=== PATIENT | female | born 1940 | race Caucasian/White ===

== ENCOUNTER 2017-03-18 11:16 | Outpatient (CLI) | payer MEDICARE, OTHER ==
[2015-09-08 23:54] VITALS: BP 154/63
--- NOTE | 2017-03-18 15:34 | Diagnostic Imaging Report ---
FLORENCIA CHAVEZ [facility] [address] [facility] [address] [address] Report Submission Date: Mar 18, 2017 3:29:38 PM CDT Patient Study Name: MAXI PERLA Date: Mar 18, 2017 11:55:46 AM CDT Modality Type: CR Gender: F Description: PELVIS : 44 Institution: [facility] Physician: FLORENCIA CHAVEZ 2 views right hip pain History: RT HIP, PAIN IN RT HIP FOR SEVERAL WEEKS Findings: No comparison studies Degenerative changes right hip. There is over coverage of the femoral head by the acetabulum No evidence of acute fracture or dislocation Impression: Over coverage of the femoral head by the acetabulum, possible Pincer type impingement Narrowing of the hip joint space No evidence of acute fracture or dislocation Electronically signed on Mar 18, 2017 3:29:38 PM CDT by: Jaye ROE
== END 2017-03-18 11:17 ==
LOC: RAD 11:16
PROVIDERS: ATTEND Family Medicine
DX: M25.551 Pain in right hip (principal)
CPT/HCPCS: 73502

== ENCOUNTER 2017-04-29 09:47 | Outpatient (CLI) | payer MEDICARE, OTHER ==
[2015-09-08 23:54] VITALS: BP 154/63
[2017-04-29 10:38] LABS: eGFR (African) 30; eGFR (Non-African) 24
== END 2017-04-29 09:50 ==
LOC: LAB 09:47
PROVIDERS: ATTEND Family Medicine
DX: E11.9 Type 2 diabetes mellitus without complications (principal); E03.9 Hypothyroidism, unspecified; M10.9 Gout, unspecified
CPT/HCPCS: 36415; 80053; 80061; 82043; 83036; 84443; 84550

== ENCOUNTER 2017-06-29 12:53 | Emergency (ER) | payer MEDICARE, OTHER ==
--- NOTE | 2017-06-29 13:14 | ED Physician Documentation ---
General Adult - HISTORIAN Historian: patient - HPI Chief Complaint: General Adult Onset: hours (this am) Timing: still present, better Severity: mild Further Comments: yes (Satish states that last several days she has been felling like her balance is off. Has not fallen. Has been having some mild dizziness.) - ROS CONST: no problems, fever. denies: chills CVS/RESP: denies: chest pain, shortness of breath - PAST HX Past History: hypertension, other (hypothyroidism, hyperuricemia) Other History: diabetes Type 2 Surgeries/Procedures: other (TKR left, partial colectomy, ORIF L ankle fx) Immunizations: referred to PCP Allergies/Adverse Reactions: Allergies Allergy/AdvReac Type Severity Reaction Status Date / Time TOBI Inhibitors Allergy Unknown Verified 06/29/17 13:16 contrast dye Allergy Uncoded 06/29/17 13:16 Home Medications: Ambulatory Orders Medication Instructions Recorded Aspirin [James] 81 mg PO DAILY 07/15/14 Vit C/E/Zn/Coppr/Lutein/Zeaxan 1 tab PO DAILY 09/08/15 [Preservision Areds 2 Softgel] - SOCIAL HX Smoking History: non-smoker Alcohol Use: none Drug Use: none - FAMILY HX Family History: No - VITAL SIGNS Vital Signs: Vital Signs Temp Pulse Resp BP Pulse Ox 154/63 09/08/15 23:52 - REVIEWED ASSESSMENTS Nursing Assessment Reviewed: Yes Vitals Reviewed: Yes General Adult Physical Exam - PHYSICAL EXAM GENERAL APPEARANCE: mild distress EENT: eye inspection normal, ENT inspection normal, pharynx normal, no signs of dehydration NECK: normal inspection, thyroid normal, supple RESPIRATORY: no resp distress, chest non-tender, breath sounds normal. No: wheezes, rales, rhonchi CVS: reg rate & rhythm, heart sounds normal, equal pulses, no murmur ABDOMEN: soft, no organomegaly, normal bowel sounds, no abdominal bruit, no distension, non-tender BACK: normal inspection, no CVA tenderness SKIN: warm/dry, normal color EXTREMITIES: non-tender NEURO: oriented X3, CN's nml as tested, mood/affect nml, cognition normal Discharge Clincal Impression: Dizziness, Chronic kidney disease (CKD) stage G3a/A2, moderately decreased glomerular filtration rate (GFR) between 45-59 mL/min/1.73 square meter and albuminuria creatinine ratio between 30-299 mg/g Hyperglycemia due to type 2 diabetes mellitus Qualifiers: Diabetes mellitus technician terminal and repeater insulin use: without correction use Qualified Code(s ): E11.65 - Type 2 diabetes mellitus with hyperglycemia Hypertension Qualifiers: Hypertension type: essential hypertension Qualified Code(s): I10 - Essential ( primary) hypertension Referrals: Rishi Robles MD [Primary Care Provider] - 2 Days Additional Instructions: Drink a lot of water/fluids. For the next several days until your dizziness improved to use a cane or walk touching odell, furniture or something to help you balance yourself. Return to see me on July 08, 2017 at 1:30 PM. Home Medications: Ambulatory Orders Aspirin [James] 81 mg PO DAILY 07/15/14 Vit C/E/Zn/Coppr/Lutein/Zeaxan [Preservision Areds 2 Softgel] 1 tab PO DAILY 10/13 Condition: Stable Disposition: 01 HOME, SELF-CARE Decision to Admit: NO Date of Decison to Admit: 06/29/17 Decision Time: 14:21
[2017-06-29 13:39] LABS: BASOPHILS % 0.9 (0.0-1.5); MEAN CORPUSCULAR HEMOGLOBIN 29.1 pg (28.0-34.0); MEAN CORPUSCULAR VOLUME 92.5 fl (80.0-100.0); MONOCYTES % 4.7 % (0.0-11.0); NEUTROPHILS # 2.8 # k/uL (1.4-7.7)
[2017-06-29 13:51] LABS: APPEARANCE,URINE Cloudy (CLEAR); COLOR,URINE Yellow (YELLOW); OCCULT BLOOD,URINE Negative (NEGATIVE); UROBILINOGEN URINE 0.2 Eu (0.2-1.0)
[2017-06-29 14:00] LABS: AMORPHOUS SEDIMENT,UR MODERATE (NEGATIVE)
[2017-06-29 14:54] VITALS: BP 169/64
== END 2017-06-29 14:53 | disposition home or self-care (01) ==
LOC: ED 12:53
DX: N18.9 Chronic kidney disease, unspecified (principal); E11.65 Type 2 diabetes mellitus with hyperglycemia; I10 Essential (primary) hypertension; R42 Dizziness and giddiness
CPT/HCPCS: 80053; 81002; 85025; 87086; 99283

== ENCOUNTER 2017-09-13 10:27 | Outpatient (CLI) | payer MEDICARE, OTHER | END 2017-09-13 10:30 | LOC: LAB 10:27 | PROVIDERS: ATTEND Family Medicine | DX: E11.9 Type 2 diabetes mellitus without complications (principal) | CPT/HCPCS: 36415; 83036 ==

== ENCOUNTER 2017-10-05 12:49 | Emergency (ER) | payer MEDICARE, OTHER ==
[2017-10-05 13:29] LABS: BASOPHILS % 0.6 (0.0-1.5); EOSINOPHILS % 2.4 % (0.0-6.8); MEAN CORPUSCULAR HEMOGLOBIN 29.6 pg (28.0-34.0); MEAN CORPUSCULAR VOLUME 88.8 fl (80.0-100.0); MONOCYTES % 4.2 % (0.0-11.0); NEUTROPHILS # 2.8 # k/uL (1.4-7.7)
--- NOTE | 2017-10-05 14:03 | ED Physician Documentation ---
General Adult - HISTORIAN Historian: patient - HPI Stated Complaint: fall Chief Complaint: Syncope Onset: hours (1) Timing: better Severity: mild Modifying Factors: after eating Context: none Quality: non Location: [facility] Further Comments: yes (she states she took her DM meds and she did not eat) Last known Well Date: 10/05/17 Last Known Well Time: 13:00 Last known Well Code/Unknown Code: Unknown - ROS CONST: no problems EYES/ENT: none CVS/RESP: none GI/: none MS/SKIN/LYMPH: none NEURO/PSYCH: fainting, dizziness, difficulty walking. denies: headache, numbness - PAST HX Past History: other (DM, hypertension , hypothryoidism, hyperlpidemia ) Other History: other Surgeries/Procedures: other (left ankle gallbladder ) Allergies/Adverse Reactions: Allergies Allergy/AdvReac Type Severity Reaction Status Date / Time TOBI Inhibitors Allergy Unknown Verified 10/05/17 13:00 contrast dye Allergy Uncoded 10/05/17 13:00 Home Medications: Ambulatory Orders Medication Instructions Recorded Aspirin [James] 81 mg PO DAILY 07/15/14 Vit C/E/Zn/Coppr/Lutein/Zeaxan 1 tab PO DAILY 09/08/15 [Preservision Areds 2 Softgel] - SOCIAL HX Smoking History: cigarettes Drug Use: none - FAMILY HX Family History: No - VITAL SIGNS Vital Signs: Vital Signs Temp Pulse Resp BP Pulse Ox 96.7 F L 81 16 175/93 99 10/05/17 12:49 10/05/17 12:49 10/05/17 12:49 10/05/17 12:49 10/05/17 12:49 - REVIEWED ASSESSMENTS Nursing Assessment Reviewed: Yes Vitals Reviewed: Yes ED Results Lab/Radiology - Lab Results Lab Results: Lab Results 10/05/17 10/05/17 13:25 13:25 WBC 4.20 K/ul K/ul (4.00-12.00) RBC 3.17 M/ul L M/ul (3.90-5.20) Hgb 9.4 g/dL L g/dL (12.0-16.0) Hct 28.2 % L % (34.5-46.5) MCV 88.8 fl fl (80.0-100.0) MCH 29.6 pg pg (28.0-34.0) MCHC 33.4 g/dL g/dL (30.0-36.0) RDW 13.7 % % (11.3-14.3) Plt Count 167 K/mm3 K/mm3 (130-400) Neut % (Auto) 65.6 % % (39.0-79.0) Lymph % (Auto) 25.6 % % (16.0-50.0) [place] % (Auto) 4.2 % % (0.0-11.0) Eos % (Auto) 2.4 % % (0.0-6.8) Baso % (Auto) 0.6 (0.0-1.5) Neut # (Auto) 2.8 # k/uL # k/uL (1.4-7.7) Lymph # (Auto) 1.1 # k/uL # k/uL (0.6-4.0) [place] # (Auto) 0.2 # k/uL # k/uL (0.0-0.9) Eos # (Auto) 0.1 # k/uL # k/uL (0.0-0.6) Baso # (Auto) 0.0 # k/uL # k/uL (0.0-0.5) Reactive Lymphs % 1.7 % % (0.0-5.0) Reactive Lymphs # 0.1 # k/uL # k/uL (0.0-0.8) Sodium 136 mmol/L L mmol/L (137-145) Potassium 5.1 mmol/L mmol/L (3.5-5.1) Chloride 108 mmol/L H mmol/L (98-107) Carbon Dioxide 17 mmol/L L mmol/L (22-30) BUN 32 mg/dL H mg/dL (7-17) Creatinine 2.10 mg/dL H mg/dL (0.52-1.04) Estimated Creat Clear 32 Est GFR ( Amer) 30 L (60 - ) Est GFR (Non-Af Amer) 24 L (60 - ) Glucose 299 mg/dL H mg/dL (74-106) Calcium 8.4 mg/dL mg/dL (8.4-10.2) Total Bilirubin 0.3 mg/dL mg/dL (0.2-1.3) AST 16 U/L U/L (15-46) ALT 34 U/L U/L (13-69) Alkaline Phosphatase 90 U/L U/L (38-126) Total Protein 6.4 g/dL g/dL (6.3-8.2) Albumin 3.4 g/dL L g/dL (3.5-5.0) - Orders Orders: ED Orders Category Date Time Status CBC/PLATELET/DIFF Routine Lab 10/05/17 13:25 Completed CMP [CMP] Routine Lab 10/05/17 13:25 Completed Chem Sticks Med 10/05/17 14:00 Ordered 1 each CHEMQ General Adult Physical Exam - PHYSICAL EXAM GENERAL APPEARANCE: no distress EENT: eye inspection normal, ENT inspection normal, MACK NECK: normal inspection RESPIRATORY: no resp distress, chest non-tender, breath sounds normal CVS: reg rate & rhythm, heart sounds normal, no murmur SKIN: warm/dry, normal color EXTREMITIES: non-tender NEURO: oriented X3, CN's nml as tested, motor nml, sensation nml, mood/affect nml, cognition normal Discharge Clincal Impression: Hypoglycemia Referrals: Rishi Robles MD [Primary Care Provider] - 2 Days Condition: Stable Disposition: 01 HOME, SELF-CARE Decision to Admit: NO Date of Decison to Admit: 10/05/17 Decision Time: 14:03
[2017-10-05 14:31] VITALS: BP 147/64
== END 2017-10-05 14:31 | disposition home or self-care (01) ==
LOC: ED 12:49
DX: E16.2 Hypoglycemia, unspecified (principal)
CPT/HCPCS: 80053; 85025; 99283

== ENCOUNTER 2017-12-05 18:51 | Emergency (ER) | payer MEDICARE, OTHER ==
[2017-12-05] MEDS ORDERED: 0.9 % SODIUM CHLORIDE 1,000 ML IV ONE ×2 (18:59→21:27)
[2017-12-05] MEDS ORDERED: INSULIN REGULAR, HUMAN 100 UNIT/ML 3ML VIAL IV ONE (19:04)
[2017-12-05 19:28] LABS: BASOPHILS % 0.7 (0.0-1.5); MEAN CORPUSCULAR HEMOGLOBIN 30.7 pg (28.0-34.0); MEAN CORPUSCULAR VOLUME 101.2 fl (80.0-100.0); MONOCYTES % 3.6 % (0.0-11.0); NEUTROPHILS # 3.6 # k/uL (1.4-7.7)
[2017-12-05 19:45] LABS: eGFR (African) 21; eGFR (Non-African) 18
[2017-12-05] MEDS ORDERED: INSULIN REGULAR, HUMAN 100 UNIT in 0.9 % SODIUM CHLORIDE 100 ML IV ONE ×2 (20:15)
--- NOTE | 2017-12-05 20:22 | ED Physician Documentation ---
General Adult - HISTORIAN Historian: patient - HPI Chief Complaint: General Adult Further Comments: yes (77 year old female patient brought in via EMS. Patient reports being out of insulin since last 12/02/17. Bedside glucose registers "High". Patient states she ran out and hasn't been able to reach her PCP for a refill. 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 Denies polyuria or polydipsea) - ROS CONST: no problems EYES/ENT: none CVS/RESP: none GI/: none MS/SKIN/LYMPH: none NEURO/PSYCH: denies: headache, fainting, dizziness, tingling, numbness, difficulty walking, difficulty with speech, anxiety, depression, other - PAST HX Past History: hypertension, other (HLD, IDDM, Gout, Hypothyroidism) Surgeries/Procedures: other (Left ankle ORIF, Left knee replacement. ) Allergies/Adverse Reactions: Allergies Allergy/AdvReac Type Severity Reaction Status Date / Time TOBI Inhibitors Allergy Unknown Verified 12/05/17 20:19 contrast dye Allergy Uncoded 10/05/17 13:00 Home Medications: Ambulatory Orders Medication Instructions Recorded Vit C/E/Zn/Coppr/Lutein/Zeaxan 1 tab PO DAILY 09/08/15 [Preservision Areds 2 Softgel] - SOCIAL HX Smoking History: non-smoker - FAMILY HX Family History: No - VITAL SIGNS Vital Signs: Vital Signs Temp Pulse Resp BP Pulse Ox 147/64 10/05/17 14:21 - REVIEWED ASSESSMENTS Nursing Assessment Reviewed: Yes Vitals Reviewed: Yes Progress - Progress Progress: Glucose 618 on arrival - 10units Hum R given IVP 2009 Glucose 586 - insulin gtt started at 5U/HR Old charts reviewed. Lab completed - urine with + ketone and glucose; Abg with ph 7.36 compensated metabolic acidosis. Anion Gap 17 meq/L. Borderline DKA. Will need insulin drip through the night at least; transfer to higher level of care. 2044 Call to [facility] [phone] Greene; patient accepted for transfer to [facility]. ED Results Lab/Radiology - Lab Results Lab Results: Lab Results 12/05/17 12/05/17 19:23 19:23 WBC 5.20 K/ul K/ul (4.00-12.00) RBC 3.21 M/ul L M/ul (3.90-5.20) Hgb 9.9 g/dL L g/dL (12.0-16.0) Hct 32.5 % L % (34.5-46.5) MCV 101.2 fl H fl (80.0-100.0) MCH 30.7 pg pg (28.0-34.0) MCHC 30.4 g/dL g/dL (30.0-36.0) RDW 13.4 % % (11.3-14.3) Plt Count 193 K/mm3 K/mm3 (130-400) Neut % (Auto) 69.4 % % (39.0-79.0) Lymph % (Auto) 21.8 % % (16.0-50.0) [place] % (Auto) 3.6 % % (0.0-11.0) Eos % (Auto) 2.0 % % (0.0-6.8) Baso % (Auto) 0.7 (0.0-1.5) Neut # (Auto) 3.6 # k/uL # k/uL (1.4-7.7) Lymph # (Auto) 1.1 # k/uL # k/uL (0.6-4.0) [place] # (Auto) 0.2 # k/uL # k/uL (0.0-0.9) Eos # (Auto) 0.1 # k/uL # k/uL (0.0-0.6) Baso # (Auto) 0.0 # k/uL # k/uL (0.0-0.5) Reactive Lymphs % 2.4 % % (0.0-5.0) Reactive Lymphs # 0.1 # k/uL # k/uL (0.0-0.8) Sodium 131 mmol/L L mmol/L (136-145) Potassium 4.6 mmol/L mmol/L (3.5-5.1) Chloride 100 mmol/L mmol/L (98-107) Carbon Dioxide 16 mmol/L L mmol/L (22-30) BUN 44 mg/dL H mg/dL (7-17) Creatinine 2.80 mg/dL H mg/dL (0.52-1.04) Est GFR ( Amer) 21 L (60 - ) Est GFR (Non-Af Amer) 18 L (60 - ) Glucose 618 mg/dL H* mg/dL (74-106) Calcium 9.1 mg/dL mg/dL (8.4-10.2) Total Bilirubin 0.4 mg/dL mg/dL (0.2-1.3) AST 21 U/L U/L (15-46) ALT 38 U/L U/L (13-69) Alkaline Phosphatase 113 U/L U/L (38-126) Total Protein 7.0 g/dL g/dL (6.3-8.2) Albumin 3.6 g/dL g/dL (3.5-5.0) - Orders Orders: ED Orders Category Date Time Status Continuous EKG monitoring Q30M Care 12/05/17 18:59 Active Continuous Pulse Oximetry Q30M Care 12/05/17 18:[address] IV Lock 1T Care 12/05/17 18:59 Active ARTERIAL BLOOD GAS Stat Lab 12/05/17 Uncollected CBC/PLATELET/DIFF Stat Lab 12/05/17 19:23 Completed CMP Stat Lab 12/05/17 19:23 Completed UA W/MICRO IF INDICATED Stat Lab 12/05/17 18:59 Ordered 0.9 % Sodium Chloride [Normal Saline] 1,000 ml Med 12/05/17 18:59 Discontinued IV NOW Chem Sticks Med 12/05/17 19:00 Ordered 1 each MC PRN Insulin Regular, Human [Humulin R] Med 12/05/17 19:04 Discontinued 10 unit IV NOW ONE Insulin Regular, Human [Humulin R] 100 unit Med 12/05/17 20:15 Active 0.9 % Sodium Chloride [Sodium Chloride] 100 ml IV 1T General Adult Physical Exam - PHYSICAL EXAM GENERAL APPEARANCE: moderate distress (frail, ill appearing elderly female) EENT: eye inspection normal, ENT inspection normal, pharynx normal, no signs of dehydration, MACK, no nystagmus, TM's nml RESPIRATORY: chest non-tender, breath sounds normal, other (tachypnea noted 28- 32) CVS: reg rate & rhythm, heart sounds normal, equal pulses, no murmur, no gallop , PMI nml, no JVD, no friction rub, 24 ABDOMEN: soft, no organomegaly, normal bowel sounds, no abdominal bruit, no distension BACK: normal inspection, no CVA tenderness SKIN: warm/dry, pallor EXTREMITIES: non-tender, normal range of motion, no evidence of injury, no edema , J, 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 X3, CN's nml as tested, motor nml, sensation nml, mood/affect nml Discharge Clincal Impression: Chronic kidney disease (CKD) stage G3a/A2, moderately decreased glomerular filtration rate (GFR) between 45-59 mL/min/1.73 square meter and albuminuria creatinine ratio between 30-299 mg/g DKA (diabetic ketoacidoses) Qualifiers: Diabetes mellitus type: type 2 Diabetes mellitus complication detail: without coma Qualified Code(s): E11.10 - Type 2 diabetes mellitus with ketoacidosis without coma Anemia Qualifiers: Anemia type: unspecified type Qualified Code(s): D64.9 - Anemia, unspecified Referrals: Rishi Robles MD [Primary Care Provider] - 2 Days Condition: Fair Disposition: 02 XFER SHT-TRM HOSP Decision to Admit: NO Decision Time: 21:26
[2017-12-05] MEDS ORDERED: DEXTROSE 5 %-0.45 % NACL 1,000 ML IV ONE (21:38)
[2017-12-05] MEDS ORDERED: DEXTROSE 5 %-0.45 % NACL 1,000 ML IV SCH (22:00)
[2017-12-05 22:10] VITALS: BP 140/48
[2017-12-06 07:21] LABS: APPEARANCE,URINE CLEAR (CLEAR); COLOR,URINE YELLOW (YELLOW); OCCULT BLOOD,URINE 2+ (NEGATIVE); UROBILINOGEN URINE 0.2 Eu (0.2-1.0)
[2017-12-06 07:25] LABS: ABG BASE EXCESS 16.1 (-2 - +2); ABG PH 7.36 (7.35-7.45)
== END 2017-12-05 21:44 | disposition short-term general hospital (02) ==
LOC: ED 18:51
DX: E11.10 Type 2 diabetes mellitus with ketoacidosis without coma (principal); N18.3 Chronic kidney disease, stage 3 (moderate); D64.9 Anemia, unspecified
CPT/HCPCS: 36600; 80053; 81002; 82803; 85025; 96361; 96365; 96366; 99284; J1815; J7030; S1016; S5010